=== PATIENT | female | born 1980 | race American Indian/Alaskan Native ===

== ENCOUNTER 2019-01-22 18:06 | Observation (INO) | payer MEDICAID ==
[2019-01-22] MEDS ORDERED: NACL 0.9% 1000 ML 1,000 ML IV ONE (18:36)
[2019-01-22] MEDS ORDERED: TYLENOL PO ONE (18:36)
--- NOTE | 2019-01-22 18:40 | Event Note ---
ED Screening Note ED Screening Note: HERE W VAG BLEED LMP SUN AND PASSING CLOTS NO KNOWN CAUSE MD SENT HER FOR HGB 5 FATIGUE AND SOB WITH ACTIVITY MSE COMPLETED This initial assessment/diagnostic orders/clinical plan/treatment(s) is/are subject to change based on patients health status, clinical progression and re- assessment by fellow clinical providers in the ED. Further treatment and workup at subsequent clinical providers discretion. Patient/guardian urged not to elope from the ED as their condition may be serious if not clinically assessed and managed. Initial orders include:
[2019-01-22 19:34] LABS: Mean Corpuscular HGB Conc 30 % (30-34); Platelet Count 313 K/mm3 (140-440); Red Blood Count 2.63 M/mm3 (3.65-5.03)
[2019-01-22 19:39] LABS: Hematocrit 17.5 % (30.3-42.9); Hemoglobin 5.2 gm/dl (10.1-14.3); Mean Corpuscular Volume 67 fl (79-97); Red Cell Distribution Width 20.6 % (13.2-15.2)
[2019-01-22 20:03] LABS: Alanine Aminotransferase 150 units/L (7-56); Albumin 3.3 g/dL (3.9-5); BUN/Creatinine Ratio 8; Blood Urea Nitrogen 5 mg/dL (7-17); Calcium 8.4 mg/dL (8.4-10.2); Hemolysis Index 0
[2019-01-22] MEDS ORDERED: NACL 0.9% 500 ML 500 ML IV ONE (20:52)
--- NOTE | 2019-01-22 21:18 | Emergency Department Report ---
HPI - General Chief Complaint: Vaginal Bleeding Time Seen by Provider: 01/22/19 18:36 - HPI HPI: 38-year-old AA female presents to the emergency department with complaint of acute on chronic vaginal bleeding and some lightheadedness. The patient does not have an OBGYN and says that she has been following up with her family physician regarding this abnormal menstrual cycle and vaginal bleeding. It was very heavy for a while and then the PCP placed her on some type of pill/medication. This greatly slowed up if not resolved the vaginal bleeding but the last pill was on Friday and the patient immediately started having bleeding again. Today she says it is very heavy with clots and associated with some pelvic cramping. She denies any headache, vision change, slurred speech, chest pain, nausea, vomiting, fever but says she has some generalized lightheadedness and fatigue. She has never had any imaging done regarding her symptoms. Her mother has a history of endometriosis. ED Past Medical Hx - Past Medical History Previous Medical History?: Yes Additional medical history: THRYOID - Surgical History Past Surgical History?: No - Social History Smoking Status: Current Every Day Smoker Substance Use Type: None ED Review of Systems ROS: Stated complaint: VAGINAL BLEEDING/LIGHT HEADED Other details as noted in HPI Comment: All other systems reviewed and negative Constitutional: weakness. denies: chills, fever Eyes: denies: eye pain, vision change ENT: denies: ear pain, throat pain Respiratory: denies: cough, shortness of breath Cardiovascular: denies: chest pain, palpitations Gastrointestinal: denies: nausea, vomiting Genitourinary: abnormal menses. denies: dysuria Musculoskeletal: denies: back pain, arthralgia Skin: denies: rash, lesions Neurological: denies: headache, weakness Physical Exam - Physical Exam Vital Signs: Vital Signs 01/22/19 01/22/19 01/22/19 18:36 20:53 21:00 Temperature 98.5 F Pulse Rate 101 H 97 H Respiratory 16 14 18 Rate Blood Pressure 147/87 O2 Sat by Pulse 100 100 Oximetry Physical Exam: GENERAL: The patient is well-developed well-nourished. HENT: Normocephalic. Atraumatic. Patient has moist mucous membranes. EYES: Extraocular motions are intact. Pupils equal reactive to light bilaterally. Pale conjunctiva. NECK: Supple. Trachea is midline. CHEST/LUNGS: Clear to auscultation. There is no respiratory distress noted. HEART/CARDIOVASCULAR: Regular. There is no tachycardia. There is no murmur. ABDOMEN: Abdomen is soft, nontender. Patient has normal bowel sounds. There is no abdominal distention. SKIN: Skin is warm and dry. NEURO: The patient is awake, alert, and oriented. The patient is cooperative. The patient has no focal neurologic deficits. The patient has normal speech. Cranial nerves II through XII grossly intact. MUSCULOSKELETAL: There is no tenderness or deformity. There is no evidence of acute injury. ED Course Vital Signs 01/22/19 01/22/19 01/22/19 18:36 20:53 21:00 Temperature 98.5 F Pulse Rate 101 H 97 H Respiratory 16 14 18 Rate Blood Pressure 147/87 O2 Sat by Pulse 100 100 Oximetry ED Medical Decision Making - Lab Data Result diagrams: 01/22/19 19:07 01/22/19 19:07 - Radiology Data Radiology results: report reviewed PROCEDURE: US TRANSVAGINAL TECHNIQUE: Real-time transvaginal sonography in multiple planes of the pelvis was performed with image documentation. HISTORY: pelvic pain, heavy bleeding COMPARISONS: None . FINDINGS: UTERUS Size: 11 x 7.2 x 8.4 cm. Endometrial thickness: 28 mm. Orientation: anteverted. Cervix: Normal. Fibroids/masses: There are two ill defined iso to hyper echoic lesions measuring 3.4 cm. RIGHT Ovary: 2 x 1.6 x 2.1 cm. Appearance: Normal. Doppler signal is not well-visualized. LEFT Ovary: 2.4 x 2.0 x 1.8 cm. Appearance: Normal. Normal Doppler signal is noted. Pelvic fluid: None. Other: None. IMPRESSION: Two focal lesion sin the uterus most likely represent fibroids Endometrium is thickened measuring 28mm.. Doppler signal is not well-visualized in the right ovary most likely secondary to technical reasons. Clinical correlation is recommended. This document is electronically signed by Alaina Vides MD., January 22 2019 10:24:58 PM ET Transcribed By: [facility] [place]ictated By: ALAINA VIDES Electronically Authenticated By: ALAINA VIDES Signed Date/Time: 01/22/196 - Medical Decision Making Patient presents to the emergency department with acute on chronic vaginal bleeding that has caused her to have significant anemia with a hemoglobin of 5.2. 2 units of packed red blood cells have been ordered for transfusion. Vital signs are stable throughout her ED course. Ultrasound shows 2 areas that could be consistent with fibroids. I spoke with the [employer]IM[employer] INVESTIGATOR nutrition helper, Dr. César Beauchamp, who has accepted the patient to his service for further evaluation and treatment. - Differential Diagnosis fibroids, endometriosis, , miscarriage, malignancy Critical Care Time: No Critical care attestation.: If time is entered above; I have spent that time in minutes in the direct care of this critically ill patient, excluding procedure time. ED Disposition Clinical Impression: Dysfunctional uterine bleeding, Fibroids Anemia Qualifiers: Anemia type: iron deficiency Iron deficiency anemia type: chronic blood loss Qualified Code(s): D50.0 - Iron deficiency anemia secondary to blood loss (chronic) Disposition: OP ADMIT IP TO THIS HOSP Is pt being admited?: Yes Condition: Fair Time of Disposition: 22:54
--- NOTE | 2019-01-22 22:26 | Ultrasound Report ---
PROCEDURE: US TRANSVAGINAL TECHNIQUE: Real-time transvaginal sonography in multiple planes of the pelvis was performed with shahid ge documentation. HISTORY: pelvic pain, heavy bleeding COMPARISONS: None . FINDINGS: UTERUS Size: 11 x 7.2 x 8.4 cm. Endometrial thickness: 28 mm. Orientation: anteverted. Cervix: Normal. Fibroids/masses: There are two ill defined iso to hyper echoic lesions measuring 3.4 cm. RIGHT Ovary: 2 x 1.6 x 2.1 cm. Appearance: Normal. Doppler signal is not well-visualized. LEFT Ovary: 2.4 x 2.0 x 1.8 cm. Appearance: Normal. Normal Doppler signal is noted. Pelvic fluid: None. Other: None. IMPRESSION: Two focal lesion sin the uterus most likely represent fibroids Endometrium is thickened measuring 28mm.. Doppler signal is not well-visualized in the right ovary most likely secondary to technical reasons. Clinical correlation is recommended. This document is electronically signed by Fransico Vides MD., January 22 2019 10:24:58 PM ET
[2019-01-22 22:33] LABS: INR 1.05 (0.87-1.13)
[2019-01-22 22:34] LABS: Partial Thromboplastin Time 22.2 Sec. (24.2-36.6)
--- NOTE | 2019-01-22 22:38 | Ultrasound Report ---
PROCEDURE: US PELVIS DUPLEX DOPPLER COMP TECHNIQUE: Real-time transabdominal sonography in multiple planes of pelvis was performed with image documentation. HISTORY: pelvic pain, heavy bleeding COMPARISONS: None . FINDINGS: UTERUS Size: 11 x 7.2 x 8.4 cm. Endometrial thickness: 28 mm. Orientation: anteverted. Cervix: Normal. Fibroids/masses: There are two ill defined iso to hyper echoic lesions measuring 3.4 cm. RIGHT Ovary: 2 x 1.6 x 2.1 cm. Appearance: Normal. Doppler signal is not well-visualized. LEFT Ovary: 2.4 x 2.0 x 1.8 cm. Appearance: Normal. Normal Doppler signal is noted. Pelvic fluid: None. Other: None. IMPRESSION: Two focal lesion sin the uterus most likely represent fibroids Endometrium is thickened m easuring 28mm.. Doppler signal is not well-visualized in the right ovary most likely secondary to jayda hnical reasons. Clinical correlation is recommended. This document is electronically signed by Fransico Vides MD., January 22 2019 10:36:07 PM ET
[2019-01-23] MEDS ORDERED: NACL 0.9% 250ML 250 ML IV ONE (00:33)
[2019-01-23] MEDS ORDERED: TYLENOL PO ONE (00:34)
[2019-01-23] MEDS ORDERED: BENADRYL IV ONE (00:35)
[2019-01-23] MEDS ORDERED: LACTATED RINGERS 1,000 ML IV SCH (01:00)
[2019-01-23] MEDS: PERCOCET 5/325 PO PRN ×2 (01:41→10:15)
--- NOTE | 2019-01-23 02:26 | Short Stay Summary ---
Short Stay Documentation Date of service: 01/23/19 Narrative H&P: This is a 38-year-old AA female LMP 01/16/19 presents to the emergency department with complaint of an acute episode of chronic vaginal bleeding and some lightheadedness. The patient does not have an OBGYN and says that she has been following up with her family physician regarding this abnormal menstrual cycle and vaginal bleeding. It was very heavy for a while and then the PCP placed her on some type of pill/medication. This greatly slowed up if not resolved the vaginal bleeding but the last pill was on Friday and the patient immediately started having bleeding again. Today she says it is very heavy with clots and associated with some pelvic cramping. She denies any headache, vision change, slurred speech, chest pain, nausea, vomiting, fever but says she has some generalized lightheadedness and fatigue. She denies any history of uterine fibroids. Her mother has a history of endometriosis. Her H/H is 5.2/17.5 and pelvic u/s showed an enlarged uterus 11 x 7.2 x 8.4 cm with 2 fibroids. She will therefore be admitted for a blood transfusion. - History Principal diagnosis: symptomatic anemia H&P: obtained from office Past Medical History: hypothyroidism Past Surgical History: No surgical history Social history: no significant social history, single - Allergies and Medications Current Medications: Allergies tree nut Allergy (Verified 01/22/19 18:38) Anaphylaxis Active Medications Sodium Chloride (Nacl 0.9% 250ml) 250 mls @ 50 mls/hr IV ONCE ONE Stop: 01/23/19 05:32 Lactated Ringer's (Lactated Ringers) 1,000 mls @ 125 mls/hr IV DIRECT LEX Oxycodone/Acetaminophen (Percocet 5/325) 2 tab PO Q4H PRN PRN Reason: Pain , Severe (7-10) Last Admin: 01/23/19 01:41 Dose: 2 tab Documented by: - Physical exam General appearance: no acute distress Integumentary: no rash HEENT: Atraumatic Lungs: Clear to auscultation Breasts: deferred Heart: Regular rate Gastrointestinal: normal Female Genitourinary: deferred Rectal Exam: deferred Extremities: no ischemia, No edema Neurological: Normal gait, Normal speech - Hospital course Hospital course: Pt is feeling much better after receiving 2 units of blood. Her H/H improved from 5.2/17.5 up to 7.6/23.8 She is ready to go home. She will follow up in the office for further evaluation of menorrhagia and uterine fibroids including a Pap and endometrial biopsy. - Disposition Condition at discharge: Good Disposition: DC-01 TO HOME OR SELFCARE - Discharge Diagnoses (1) Menorrhagia with regular cycle Status: Chronic (2) Fibroids Status: Chronic Short Stay Discharge Plan Activity: no restrictions Diet: regular Follow up with: MAGDALENA LINK MD [Primary Care Provider] - 3-5 Days SOPHY HERNANDEZ MD [Staff Physician] - 14 Days Prescriptions: Ferrous Sulfate [Feosol 325 MG tab] 325 mg PO BID #60 tablet Ibuprofen [Motrin] 800 mg PO Q8HR PRN #30 tablet PRN Reason: Pain, Moderate (4-6)
[2019-01-23] MEDS ORDERED: ZOFRAN IV PRN (02:28)
[2019-01-23] MEDS ORDERED: TYLENOL PO PRN (02:28)
[2019-01-23] MEDS ORDERED: COLACE PO PRN (02:28)
[2019-01-23 09:55] VITALS: BP 116/66
[2019-01-23] MEDS ORDERED: PRENATAL VITAMIN PO SCH (10:00)
[2019-01-23 11:51] LABS: Hematocrit 23.8 % (30.3-42.9); Hemoglobin 7.6 gm/dl (10.1-14.3)
[2019-01-23 14:23] LABS: Bilirubin,Urine NEG (Negative); Blood,Urine LG (Negative); Color,Urine Amber (Yellow); Mucus,Urine 3+ /HPF
[2019-01-23 14:25] LABS: RBC,Urine > 182.0 /HPF (0.0-6.0)
[2019-01-23 14:27] LABS: HCG Qualitative,Urine Negative (Negative)
== END 2019-01-23 16:10 | disposition home or self-care (01) ==
LOC: ED 18:06 → OB 23:07
PROVIDERS: ADMIT Obstetrics & Gynecology; ATTEND Obstetrics & Gynecology
DX: N92.0 Excessive and frequent menstruation with regular cycle (principal); D21.9 Benign neoplasm of connective and other soft tissue, unspecified; D64.9 Anemia, unspecified; E03.9 Hypothyroidism, unspecified; R42 Dizziness and giddiness; Z91.018 Allergy to other foods
CPT/HCPCS: 36415; 76830; 80053; 81001; 81025; 84703; 85014; 85018; 85027; 85610; 85730; 86850; 86900; 86901; 86920; 87086; 93975; 96374; 99284; G0378; J1200; J7050; J7120; P9016; 96361

== ENCOUNTER 2019-10-26 12:58 | Observation (INO) | payer MEDICAID ==
--- NOTE | 2019-10-26 15:10 | Emergency Department Report ---
HPI - General Chief Complaint: Rectal Pain Time Seen by Provider: 10/26/19 14:50 - HPI HPI: Room 4 The patient is a 39-year-old female present with a chief complaint of anemia. Patient states she had blood drawn by her primary physician approximately 1-2 weeks ago during a routine appointment to evaluate her thyroid. The patient states she was told she was anemic at that time. The patient states she had her blood rechecked 10/23/2019 and was told she had a hemoglobin of 4. Patient was advised to come to the hospital. Patient admits to feeling fatigued with any type of exertion but denies shortness of breath or chest pain. The patient states her last cycle occurred 09/27/2019. Patient denies bright red blood per rectum, hematemesis or melena ED Past Medical Hx - Past Medical History Additional medical history: Hypothyroidism - Surgical History Past Surgical History?: No - Family History Family history: no significant - Social History Smoking Status: Current Every Day Smoker (1 pack/day) Substance Use Type: None (Denies illicit drug use), Alcohol (Occasional) - Medications Home Medications: Home Medications Medication Instructions Recorded Confirmed Last Taken Type Ferrous Sulfate [Feosol 325 MG tab] 325 mg PO BID #60 tablet 01/23/19 Unknown Rx Ibuprofen [Motrin] 800 mg PO Q8HR PRN #30 tablet 01/23/19 Unknown Rx Levothyroxine [Synthroid] 150 mcg PO QAM 01/23/19 01/23/19 Unknown History medroxyPROGESTERone ACETATE 10 mg PO QDAY #10 tablet 01/23/19 Unknown Rx [Provera] ED Review of Systems ROS: Stated complaint: BLOOD TRANSFUSION Other details as noted in HPI Constitutional: malaise Eyes: denies: eye pain ENT: denies: throat pain Respiratory: no symptoms reported Cardiovascular: denies: chest pain Genitourinary: abnormal menses Musculoskeletal: denies: back pain Neurological: denies: headache Physical Exam - Physical Exam Vital Signs: Vital Signs 10/26/19 10/26/19 13:07 14:44 Temperature 98.2 F Pulse Rate 108 H 89 Respiratory 20 22 Rate Blood Pressure 127/53 146/81 [Left] O2 Sat by Pulse 100 100 Oximetry Physical Exam: GENERAL: The patient is well-developed well-nourished female sitting on stretcher not appearing to be in acute distress. [] HEENT: Normocephalic. Atraumatic. Extraocular motions are intact. Patient has moist mucous membranes. NECK: Supple. Trachea midline CHEST/LUNGS: Clear to auscultation. There is no respiratory distress noted. HEART/CARDIOVASCULAR: Regular. There is no tachycardia. There is no gallop rub or murmur. ABDOMEN: Abdomen is soft, nontender. Patient has normal bowel sounds. There is no abdominal distention. SKIN: There is no rash. There is no edema. There is no diaphoresis. NEURO: The patient is awake, alert, and oriented. The patient is cooperative. The patient has normal speech MUSCULOSKELETAL: There is no evidence of acute injury. ED Course Vital Signs 10/26/19 10/26/19 13:07 14:44 Temperature 98.2 F Pulse Rate 108 H 89 Respiratory 20 22 Rate Blood Pressure 127/53 146/81 [Left] O2 Sat by Pulse 100 100 Oximetry ED Medical Decision Making - Lab Data Result diagrams: 10/26/19 15:10 10/26/19 15:10 Laboratory Tests 10/26/19 10/26/19 10/26/19 15:10 15:10 15:10 WBC 6.2 RBC 3.53 L Hgb 5.5 L* Hct 19.7 L* MCV 56 L MCH 16 L MCHC 28 L RDW 22.4 H Plt Count 518 H Lymph % (Auto) 25.2 [place] % (Auto) 10.2 H Eos % (Auto) 3.5 Baso % (Auto) 0.8 Lymph # 1.6 [place] # 0.6 Eos # 0.2 Baso # 0.0 Seg Neutrophils % 60.3 Seg Neutrophils # 3.7 PT 13.7 INR 1.04 APTT 24.7 Sodium 139 Potassium 3.5 L Chloride 102.9 Carbon Dioxide 24 Anion Gap 16 BUN 8 Creatinine 0.6 L Estimated GFR > 60 BUN/Creatinine Ratio 13 Glucose 94 Calcium 9.2 Blood Type Crossmatch 10/26/19 15:16 WBC RBC Hgb Hct MCV MCH MCHC RDW Plt Count Lymph % (Auto) [place] % (Auto) Eos % (Auto) Baso % (Auto) Lymph # [place] # Eos # Baso # Seg Neutrophils % Seg Neutrophils # PT INR APTT Sodium Potassium Chloride Carbon Dioxide Anion Gap BUN Creatinine Estimated GFR BUN/Creatinine Ratio Glucose Calcium Blood Type A POSITIVE Crossmatch See Detail - Differential Diagnosis Symptomatic anemia, menorrhagia, Critical care attestation.: If time is entered above; I have spent that time in minutes in the direct care of this critically ill patient, excluding procedure time. ED Disposition Clinical Impression: Symptomatic anemia Disposition: [id number] OP ADMIT IP TO THIS HOSP Is pt being admited?: Yes Does the pt Need Aspirin: No Condition: Fair Referrals: PRIMARY CARE, [Primary Care Provider] - 3-5 Days Time of Disposition: 16:37 (Hospitalist paged (Dr Velasquez))
[2019-10-26 16:09] LABS: Basophils % (Auto) 0.8 % (0.0-1.8); Eosinophils # (Auto) 0.2 K/mm3 (0.0-0.4); Eosinophils % (Auto) 3.5 % (0.0-4.3); INR 1.04 (0.87-1.13); Lymphocytes # (Auto) 1.6 K/mm3 (1.2-5.4); Lymphocytes % (Auto) 25.2 % (13.4-35.0); Mean Corpuscular HGB Conc 28 % (30-34); Monocytes # (Auto) 0.6 K/mm3 (0.0-0.8); Monocytes % (Auto) 10.2 % (0.0-7.3); Partial Thromboplastin Time 24.7 Sec. (24.2-36.6); Platelet Count 518 K/mm3 (140-440); Red Blood Count 3.53 M/mm3 (3.65-5.03)
[2019-10-26 16:11] LABS: Hematocrit 19.7 % (30.3-42.9); Hemoglobin 5.5 gm/dl (10.1-14.3); Mean Corpuscular Volume 56 fl (79-97); Red Cell Distribution Width 22.4 % (13.2-15.2)
[2019-10-26 16:26] LABS: BUN/Creatinine Ratio 13; Blood Urea Nitrogen 8 mg/dL (7-17); Calcium 9.2 mg/dL (8.4-10.2); Hemolysis Index 0
[2019-10-26] MEDS ORDERED: SODIUM CHLORIDE 0.9% 500 ML 500 ML IV ONE (16:34)
[2019-10-26] MEDS ORDERED: SODIUM CHLORIDE 0.9% 500 ML 500 ML ONE (18:11)
--- NOTE | 2019-10-26 22:56 | History and Physical Report ---
History of Present Illness Date of examination: 10/26/19 Date of admission: 10/26/19 16:39 Chief complaint: Low hemoglobin and hematocrit History of present illness: 39-year-old female with history of menorrhagia and hypothyroidism comes in for low hemoglobin and hematocrit. Her primary care physician Isabela and told her that hemoglobin was 4 g and was asked to go to the emergency room for blood transfusion. Patient has been feeling weak and shortness of breath on minimal exertion. Also getting easily fatigued. Also feeling lightheaded. No fever or chills. Hemoglobin in the emergency room was 5.5 hence being admitted for admission Past Medical History Additional medical history: Hypothyroidism Surgical History Past Surgical History?: No Family History Family history: no significant Social History Smoking Status: Current Every Day Smoker (1 pack/day) Substance Use Type: None (Denies illicit drug use), Alcohol (Occasional) Medications Home Medications: Home Medications Medication Instructions Recorded Confirmed Last Taken Type Ferrous Sulfate [Feosol 325 MG tab] 325 mg PO BID #60 tablet 01/23/19 Unknown Rx Ibuprofen [Motrin] 800 mg PO Q8HR PRN #30 tablet 01/23/19 Unknown Rx Levothyroxine [Synthroid] 150 mcg PO QAM 01/23/19 01/23/19 Unknown History medroxyPROGESTERone ACETATE 10 mg PO QDAY #10 tablet 01/23/19 Unknown Rx [Provera] Review of Systems ROS: Stated complaint: BLOOD TRANSFUSION Other details as noted in HPI Constitutional: malaise Eyes: denies: eye pain ENT: denies: throat pain Respiratory: no symptoms reported Cardiovascular: denies: chest pain Genitourinary: abnormal menses Musculoskeletal: denies: back pain Neurological: denies: headache Medications and Allergies Allergies Allergy/AdvReac Type Severity Reaction Status Date / Time tree nut Allergy Anaphylaxis Verified 01/22/19 18:38 Home Medications Medication Instructions Recorded Confirmed Last Taken Type Levothyroxine [Synthroid] 100 mcg PO QAM 01/23/19 10/26/19 Unknown History Active Meds: Active Medications Levothyroxine Sodium (Synthroid) 100 mcg PO QAM LEX Exam - Constitutional Vitals: Temp Pulse Resp BP Pulse Ox 98.3 F 82 18 134/66 99 10/26/19 20:35 10/26/19 20:37 10/26/19 20:37 10/26/19 20:37 10/26/19 20:37 General appearance: Present: no acute distress, well-nourished - EENT Eyes: Present: PERRL ENT: hearing intact, clear oral mucosa, other (Pale mucous membranes) - Neck Neck: Present: supple, normal ROM - Respiratory Respiratory effort: normal Respiratory: bilateral: CTA - Cardiovascular Heart rate: 78 Rhythm: regular Heart Sounds: Present: S1 & S2. Absent: rub, click - Extremities Extremities: no ischemia, pulses symmetrical, No edema Peripheral Pulses: within normal limits - Abdominal General gastrointestinal: Present: soft, non-tender, non-distended, normal bowel sounds Female genitourinary: Present: normal - Integumentary Integumentary: Present: clear, warm, dry - Musculoskeletal Musculoskeletal: gait normal, strength equal bilaterally - Psychiatric Psychiatric: appropriate mood/affect, intact judgment & insight - Neurologic Neurologic: CNII-XII intact, moves all extremities Results - Labs CBC & Chem 7: 10/26/19 15:10 10/26/19 15:10 Labs: Laboratory Last Values WBC 6.2 K/mm3 (4.5-11.0) 10/26/19 15:10 RBC 3.53 M/mm3 (3.65-5.03) L 10/26/19 15:10 Hgb 5.5 gm/dl (10.1-14.3) L* 10/26/19 15:10 Hct 19.7 % (30.3-42.9) L* 10/26/19 15:10 MCV 56 fl (79-97) L 10/26/19 15:10 MCH 16 pg (28-32) L 10/26/19 15:10 MCHC 28 % (30-34) L 10/26/19 15:10 RDW 22.4 % (13.2-15.2) H 10/26/19 15:10 Plt Count 518 K/mm3 (140-440) H 10/26/19 15:10 Lymph % (Auto) 25.2 % (13.4-35.0) 10/26/19 15:10 [place] % (Auto) 10.2 % (0.0-7.3) H 10/26/19 15:10 Eos % (Auto) 3.5 % (0.0-4.3) 10/26/19 15:10 Baso % (Auto) 0.8 % (0.0-1.8) 10/26/19 15:10 Lymph # 1.6 K/mm3 (1.2-5.4) 10/26/19 15:10 [place] # 0.6 K/mm3 (0.0-0.8) 10/26/19 15:10 Eos # 0.2 K/mm3 (0.0-0.4) 10/26/19 15:10 Baso # 0.0 K/mm3 (0.0-0.1) 10/26/19 15:10 Seg Neutrophils % 60.3 % (40.0-70.0) 10/26/19 15:10 Seg Neutrophils # 3.7 K/mm3 (1.8-7.7) 10/26/19 15:10 PT 13.7 Sec. (12.2-14.9) 10/26/19 15:10 INR 1.04 (0.87-1.13) 10/26/19 15:10 APTT 24.7 Sec. (24.2-36.6) 10/26/19 15:10 Sodium 139 mmol/L (137-145) 10/26/19 15:10 Potassium 3.5 mmol/L (3.6-5.0) L 10/26/19 15:10 Chloride 102.9 mmol/L (98-107) 10/26/19 15:10 Carbon Dioxide 24 mmol/L (22-30) 10/26/19 15:10 Anion Gap 16 mmol/L 10/26/19 15:10 BUN 8 mg/dL (7-17) 10/26/19 15:10 Creatinine 0.6 mg/dL (0.7-1.2) L 10/26/19 15:10 Estimated GFR > 60 ml/min 10/26/19 15:10 BUN/Creatinine Ratio 13 % 10/26/19 15:10 Glucose 94 mg/dL (65-100) 10/26/19 15:10 Calcium 9.2 mg/dL (8.4-10.2) 10/26/19 15:10 HCG, Qual Negative (Negative) 10/26/19 15:43 Blood Type A POSITIVE 10/26/19 15:16 Antibody Screen Negative 10/26/19 15:16 Crossmatch See Detail 10/26/19 15:16 [place]/IV: IV Catheter Type [Left INT / Saline Lock Antecubital] Assessment and Plan Advance Directives: Yes (Full code) VTE prophylaxis?: Chemical Plan of care discussed with patient/family: Yes - Patient Problems (1) Symptomatic anemia Current Visit: Yes Status: Acute Plan to address problem: Transfuse 2 units of packed red blood cells Check iron levels (2) Menorrhagia with regular cycle Current Visit: No Status: Chronic Plan to address problem: Pelvic ultrasound to rule out fibroids PROCEDURE TECH consult with Dr. Nito Lindsey (3) Hypothyroidism (acquired) Current Visit: Yes Status: Chronic Plan to address problem: Continue Synthroid Check TSH (4) Nicotine dependence Current Visit: Yes Status: Chronic Qualifiers: Nicotine product type: cigarettes Plan to address problem: Counseled Patient started on NicoDerm patch (5) DVT prophylaxis Current Visit: Yes Status: Acute Plan to address problem: On heparin and GI prophylaxis
[2019-10-26] MEDS ORDERED: ONDANSETRON 4 MG/2 ML INJ IV PRN (23:03)
[2019-10-26] MEDS ORDERED: oxyCODONE /ACETAMINOPHEN 5-325MG TAB PO PRN (23:03)
[2019-10-26] MEDS ORDERED: ACETAMINOPHEN 325 MG TAB PO PRN (23:03)
[2019-10-26] MEDS ORDERED: METOCLOPRAMIDE 10 MG TAB PO PRN (23:03)
[2019-10-26] MEDS ORDERED: POTASSIUM CHLORIDE ER 20 MEQ TAB PO ONE (23:46)
[2019-10-27] MEDS ORDERED: LEVOTHYROXINE 100 MCG TAB PO SCH (06:00)
[2019-10-27 06:13] VITALS: BP 118/72
[2019-10-27 06:33] LABS: Hematocrit 25.6 % (30.3-42.9); Hemoglobin 7.6 gm/dl (10.1-14.3); Mean Corpuscular HGB Conc 30 % (30-34); Platelet Count 557 K/mm3 (140-440); Red Blood Count 4.23 M/mm3 (3.65-5.03)
[2019-10-27 06:45] LABS: Mean Corpuscular Volume 61 fl (79-97); Red Cell Distribution Width 28.3 % (13.2-15.2)
[2019-10-27 06:55] LABS: Alanine Aminotransferase 12 units/L (7-56); BUN/Creatinine Ratio 15; Blood Urea Nitrogen 9 mg/dL (7-17); Calcium 9.1 mg/dL (8.4-10.2); Hemolysis Index 2; Iron 34 ug/dL (37-170); Total Iron Binding Capacity 449 mcg/dL (250-450)
[2019-10-27 07:37] LABS: Basophils % (Manual) 0 % (0.0-1.8); Total Cells Counted 100
[2019-10-27 07:38] LABS: Anisocytosis 1+
[2019-10-27 07:39] LABS: Hypochromasia 1+; Platelet Estimate Consistent w Auto
[2019-10-27] MEDS ORDERED: HEPARIN 5,000 UNIT/1 ML VIAL SUB-Q SCH (10:00)
[2019-10-27] MEDS ORDERED: FAMOTIDINE 20 MG TAB PO SCH (10:00)
[2019-10-27] MEDS ORDERED: NICOTINE 14 MG/24 HR PATCH TD SCH (10:00)
[2019-10-27] MEDS: HYDROmorphone 1 MG/1 ML INJ IV PRN ×2 (10:38)
--- NOTE | 2019-10-27 10:54 | Discharge Summary ---
Providers - Providers Date of Admission: 10/26/19 16:39 Date of discharge: 10/27/19 Attending physician: ROSA BARAJAS 10/26/19 23:03 Consult to Physician [CONS] Routine Comment: Consulting Provider: SOPHY HERNANDEZ Physician Instructions: Reason For Exam: Menorrhagia Primary care physician: SUPERVISOR SHOP Hospitalization Condition: Fair Hospital course: 39-year-old female with history of menorrhagia and hypothyroidism comes in for low hemoglobin and hematocrit. Her primary care physician Isabela and told her that hemoglobin was 4 g and was asked to go to the emergency room for blood transfusion. Hemoglobin in the emergency room was 5.5 hence being admitted for blood transfusion. Patient received 1 unit of blood transfusion and hemoglobin improved to 7.6. Patient was instructed to follow-up outpatient with [facility] [employer]. She was discharged home in stable condition. Discharge diagnosis: (1) Symptomatic anemia Transfused 1 unit of packed RBC (2) Menorrhagia with regular cycle Patient will follow-up outpatient with [facility] [employer] (3) Hypothyroidism (acquired) Continue Synthroid (4) Nicotine dependence Patient started on NicoDerm patch Counseled for cessation Physical exam: General appearance: Present: no acute distress, well-nourished - EENT Eyes: Present: PERRL ENT: hearing intact, clear oral mucosa, other (Pale mucous membranes) - Neck Neck: Present: supple, normal ROM - Respiratory Respiratory effort: normal Respiratory: bilateral: CTA - Cardiovascular Heart rate: 78 Rhythm: regular Heart Sounds: Present: S1 & S2. Absent: rub, click - Extremities Extremities: no ischemia, pulses symmetrical, No edema Peripheral Pulses: within normal limits - Abdominal General gastrointestinal: Present: soft, non-tender, non-distended, normal bowel sounds Female genitourinary: Present: normal - Integumentary Integumentary: Present: clear, warm, dry - Musculoskeletal Musculoskeletal: gait normal, strength equal bilaterally - Psychiatric Psychiatric: appropriate mood/affect, intact judgment & insight - Neurologic Neurologic: CNII-XII intact, moves all extremities Disposition: DC-01 TO HOME OR SELFCARE Time spent for discharge: 34 minutes Core Measure Documentation - Palliative Care Palliative Care/ Comfort Measures: Not Applicable - Core Measures Any of the following diagnoses?: none Exam - Constitutional Vitals: Temp Pulse Resp BP Pulse Ox 98.1 F 75 17 118/72 100 10/27/19 05:03 10/27/19 05:03 10/27/19 07:26 10/27/19 05:03 10/27/19 05:03 Plan Activity: advance as tolerated Weight Bearing Status: Weight Bear as Tolerated Diet: low fat, low salt Follow up with: PRIMARY CARE, [Primary Care Provider] - 3-5 Days ROBERT HERNANDEZ MD [Staff Physician] - 7 Days Prescriptions: Ferrous Sulfate [Feosol 325 MG tab] 325 mg PO BID #60 tablet
--- NOTE | 2019-10-27 12:03 | Ultrasound Report ---
PELVIC ULTRASOUND HISTORY: Menorrhagia COMPARISON: 01/22/2019 TECHNIQUE: Transverse and longitudinal images were obtained of the pelvis using transabdominal ultras ound. FINDINGS: Uterus: Mildly largest. A questionable fundal fibroid is located intramural and measures 2.1 x 1.3 x 1.9 cm. cm. Endometrium: Normal thickness measuring 4.2 mm. Right Ovary: The right ovary contains a dominant follicle measuring 2.4 cm. The ovary measures 3.1 x 3.0 x 3.9 cm. Left Ovary: Normal left ovary measuring 2.6 x 1.7 x 2.3 cm. Additional findings: None. IMPRESSION: 1. Mildly enlarged uterus with a probable uterine fibroid. 2. Normal endometrium. 3. Normal ovaries with a dominant 2.4 cm follicle of the right ovary. Signer Name: Louis Marin MD Signed: 10/27/2019 11:58 AM Workstation Name: [id number]
== END 2019-10-27 13:30 | disposition home or self-care (01) ==
LOC: ED 12:58 → 3A 16:39
PROVIDERS: ADMIT Internal Medicine; ATTEND Internal Medicine
DX: D64.9 Anemia, unspecified (principal); N92.0 Excessive and frequent menstruation with regular cycle; E03.9 Hypothyroidism, unspecified; F17.210 Nicotine dependence, cigarettes, uncomplicated; Z79.899 Other long term (current) drug therapy; Z91.018 Allergy to other foods; Z71.6 Tobacco abuse counseling
CPT/HCPCS: 36415; 36430; 76856; 80048; 80053; 83550; 84443; 84703; 85007; 85025; 85610; 85730; 86850; 86900; 86901; 86920; 96372; 96374; 96376; 99284; 99406; G0378; J1170; J1644; J7040; P9016